=== PATIENT | female | born 1970 | race Caucasian/White ===

== ENCOUNTER → 2025-02-04 10:49 | Outpatient (REF) | payer OTHER, SELFPAY ==
[2025-02-04 18:46] LABS: Rubella Low Positive
[2025-02-06 05:52] LABS: Quantiferon Mitogen minus NIL 9.99 IU/mL; Quantiferon NIL 0.01 IU/mL; Quantiferon Plus TB2 minus NIL 0.01 IU/mL (<=0.34); Quantiferon TB Gold Plus Negative (Negative)
== END ==
LOC: OHS 10:49
PROVIDERS: ATTENDING PHYSICIAN Nurse Practitioner Family
DX: Z23 Encounter for immunization (principal)
CPT/HCPCS: 36415; 86480; 86735; 86762; 86765; 86787